=== PATIENT | female | born 1950 | race Caucasian/White ===

== ENCOUNTER 2021-02-20 13:32 | Emergency (ER) | payer OTHER | END 2021-02-20 13:51 | disposition left against medical advice (07) | LOC: ER 13:32 | DX: R42 Dizziness and giddiness (principal); F02.80 Dementia in other diseases classified elsewhere, unspecified severity, without behavioral disturbance, psychotic disturbance, mood disturbance, and anxiety; N18.6 End stage renal disease; E11.319 Type 2 diabetes mellitus with unspecified diabetic retinopathy without macular edema; Z53.21 Procedure and treatment not carried out due to patient leaving prior to being seen by health care provider; Z99.2 Dependence on renal dialysis ==